=== PATIENT | male | born 1955 | race Two or more races ===

== ENCOUNTER 2018-08-12 10:32 | Emergency (ER) | payer OTHER, SELFPAY ==
[~2018-08-12] VITALS: Ht 167.6 cm; Wt 67.0 kg
[2018-08-12 10:34] VITALS: BP 153/81
== END 2018-08-12 11:50 | disposition home or self-care (01) ==
LOC: ED 11:26
DX: M54.16 Radiculopathy, lumbar region (principal); F17.200 Nicotine dependence, unspecified, uncomplicated
CPT/HCPCS: 99282; 99406

== ENCOUNTER 2019-09-17 21:41 | Inpatient (IN) | payer OTHER ==
[~2019-09-17] VITALS: Ht 177.8 cm; Wt 64.2 kg
[2019-09-17] MEDS ORDERED: OMNIPAQUE 350 MG/ML, 100ML BOTTLE ONE (22:05)
--- NOTE | 2019-09-17 22:14 | NUR ---
TELE NEURO EXAM IN PROCESS NOW.
--- NOTE | 2019-09-17 22:14 | NUR ---
PT. ARRIVED INTO ED AT 2148 [address]ENT [address] CT COMPLETED AT 2153. ISTAT LABS HANDED TO DR. NORTON AT THIS TIME.
[2019-09-17 22:18] LABS: BASOPHILS # (AUTO) 0.03 x10^3/uL (0-0.1); BASOPHILS % (AUTO) 0 % (0-1); EOSINOPHILS # (AUTO) 0.14 x10^3/uL (0-0.4); EOSINOPHILS % (AUTO) 2 % (1-7); LYMPHOCYTES # (AUTO) 1.88 x10^3/uL (1-3.4); LYMPHOCYTES % (AUTO) 25 % (22-44); MD NO; MEAN CORPUSCULAR HEMOGLOBIN 33.7 pg (27.5-34.5); MEAN CORPUSCULAR HGB CONC 32.8 g/dL (33.2-36.2); MEAN CORPUSCULAR VOLUME 102.8 fL (81-97); MEAN PLATELET VOLUME 7.1 fL (7.4-10.4); MONOCYTES # (AUTO) 0.42 x10^3/uL (0.2-0.8); MONOCYTES % (AUTO) 6 % (2-9); NEUTROPHILS # (AUTO) 4.97 x10^3/uL (1.8-6.8); NEUTROPHILS % (AUTO) 67 % (42-75); PLATELET COUNT 344 x10^3/uL (130-400); RED BLOOD COUNT 3.78 x10^6/uL (4.38-5.82); RED CELL DISTRIBUTION WIDTH 14.5 % (9.4-14.8)
[2019-09-17 22:27] LABS: ALBUMIN 2.6 g/dL (3.4-5.0); ANION GAP 7 mmol/L (5-15); CALCIUM 8.1 mg/dL (8.5-10.1); CHLORIDE 110 mmol/L (98-107); CREATININE 1.25 mg/dL (0.7-1.3); INTERNATIONAL NORMALIZED RATIO 1.15 (0.93-1.1)
--- NOTE | 2019-09-17 22:34 | NUR ---
PT. IS MAINTAINING OWN ORAL SECRETIONS AND GAG REFLEX IS INTACT.
[2019-09-17] MEDS ORDERED: ALTEPLASE IV ONE (23:00)
[2019-09-17] MEDS ORDERED: ALTEPLASE 6 MG in SYRINGE 1 EA IVPush ONE (23:00)
--- NOTE | 2019-09-17 23:16 | NUR ---
PT. REMAINS APHASIC. PT. IS ABLE TO FOLLOW SOME COMMANDS SUCH GRASPING WITH HIS LEFT HAND, LIFTING UP TONGUE FOR ORAL TEMP AND CLOSING MOUTH. PT. WITHDRAWLS MINIMMALY FROM PAINFUL STIMULI TO RIGHT ARM AND RIGHT LEG. PT. HAS EYES OPEN AND CONTINUES TO TWIRL AROUND HIS BANDANA AND WATCH IT. PT. WILL NOT LOOK TO RN WHEN ON RIGHT SIDE OF BED, BUT DOES MAKE EYE CONTACT WHEN ON LEFT SIDE WHEN CALLING HIS NAME. ALL SAFETY MEASURES IN PLACE. THIS RN TO REMAIN AT BS FOR CONTINUOUS OBS.
--- NOTE | 2019-09-17 23:45 | NUR ---
BRUNO AT FOR EKATERINA NOW
--- NOTE | 2019-09-17 23:54 | NUR ---
NO CHANGE IN PT. CONDITION AT THIS TIME.
[2019-09-18] MEDS ORDERED: LABETALOL 5MG/ML, 20ML IV PRN
[2019-09-18] MEDS ORDERED: ONDANSETRON 2MG/ML, 2ML IVPush PRN
--- NOTE | 2019-09-18 00:12 | NUR ---
REPORT TO TERENCE POTTER. FLOOR READY FOR PT. TRANSPORT.
[2019-09-18] MEDS: ATORVASTATIN 40 MG TABLET PO SCH (00:14)
[2019-09-18 00:34] LABS: AMPHETAMINE SCREEN, URINE Negative (Negative); BARBITURATE SCREEN, URINE Negative (Negative); BENZODIAZEPINE SCREEN, URINE Negative (Negative); CANNABINOID SCREEN, URINE Negative (Negative); COCAINE SCREEN, URINE Negative (Negative); METHADONE SCREEN, URINE Negative (Negative); OPIATE SCREEN, URINE Negative (Negative)
[2019-09-18] MEDS ORDERED: ALTEPLASE 1 MG/ML ONE (01:51)
[2019-09-18 04:36] LABS: CHOL/HDL RATIO 3.4; LDL/HDL RATIO 1.8 (0.5-3.0)
[2019-09-18 04:46] LABS: HEMOGLOBIN A1C 5.4 % (4.2-6.3)
[2019-09-18 05:05] VITALS: BP 148/99
[2019-09-18] MEDS ORDERED: CALCIUM GLUCONATE 4.6 MEQ in SODIUM CHLORIDE 0.9% 50 ML IV ONE (08:30)
[2019-09-18] MEDS: SODIUM CHLORIDE 0.9% 1,000 ML IV SCH (10:00)
[2019-09-18] MEDS ORDERED: LORazepam 2 MG/ML, 1ML ONE (15:58)
[2019-09-18] MEDS ORDERED: LORazepam 2 MG/ML, 1ML IVPush ONE (16:00)
[2019-09-19 04:00] VITALS: BP 142/85
[2019-09-19] MEDS: SODIUM CHLORIDE 0.9% 1,000 ML IV SCH (04:30)
[2019-09-19 04:32] LABS: BASOPHILS # (AUTO) 0.01 x10^3/uL (0-0.1); BASOPHILS % (AUTO) 0 % (0-1); EOSINOPHILS % (AUTO) 1 % (1-7); LYMPHOCYTES # (AUTO) 1.29 x10^3/uL (1-3.4); LYMPHOCYTES % (AUTO) 13 % (22-44); MD NO; MEAN CORPUSCULAR HEMOGLOBIN 33.8 pg (27.5-34.5); MEAN CORPUSCULAR HGB CONC 33.6 g/dL (33.2-36.2); MEAN CORPUSCULAR VOLUME 100.6 fL (81-97); MONOCYTES # (AUTO) 0.48 x10^3/uL (0.2-0.8); MONOCYTES % (AUTO) 5 % (2-9); NEUTROPHILS # (AUTO) 8.34 x10^3/uL (1.8-6.8); NEUTROPHILS % (AUTO) 82 % (42-75); PLATELET COUNT 427 x10^3/uL (130-400); RED CELL DISTRIBUTION WIDTH 14.2 % (9.4-14.8)
[2019-09-19 04:36] LABS: ANION GAP 6 mmol/L (5-15); CALCIUM 8.1 mg/dL (8.5-10.1); CHLORIDE 109 mmol/L (98-107); CREATININE 0.97 mg/dL (0.7-1.3)
[2019-09-19] MEDS ORDERED: POTASSIUM CHLORIDE 20 MEQ in SODIUM CHLORIDE 0.9% 250 ML IV ONE (07:00)
[2019-09-19] MEDS ORDERED: PROPOFOL 100 ML IV ONE (08:00)
[2019-09-19] MEDS ORDERED: ETOMIDATE 20 MG/10 ML ONE (08:00)
--- NOTE | 2019-09-19 09:16 | NUR ---
TF GOAL: OSMOLITE 1.2 @ 75ML/HR
[2019-09-19] MEDS: FAMOTIDINE 20 MG TABLET PO SCH ×2 (09:34→21:28)
[2019-09-19] MEDS ORDERED: ASPIRIN 81 MG TABLET CHEW PO ONE (11:00)
[2019-09-19] MEDS ORDERED: LISINOPRIL 5 MG TABLET PO SCH (11:30)
[2019-09-19 13:57] VITALS: BP 164/88
[2019-09-19] MEDS ORDERED: hydrALAzine 20 MG/ML, 1ML IV PRN (14:30)
[2019-09-19] MEDS ORDERED: PHARMACY MAY ADJ FOR RENAL FX MC SCH (16:00)
[2019-09-19 16:14] LABS: O2 FLOW RA L/min
[2019-09-19] MEDS ORDERED: ETOMIDATE 20 MG/10 ML IVPush ONE (16:30)
[2019-09-19] MEDS: PROPOFOL 100 ML IV PRN (16:37)
[2019-09-19] MEDS: LIDOCAINE-MPF 1%, 2ML ENDO PRN (16:49)
[2019-09-19] MEDS ORDERED: ALBUTEROL/IPRATROPIUM 2.5MG/0.5MG, 3 ML NPPB PRN (17:00)
[2019-09-19] MEDS ORDERED: ALBUTEROL/IPRATROPIUM 2.5MG/0.5MG, 3 ML NPPB SCH (17:00)
[2019-09-19] MEDS ORDERED: FUROSEMIDE 20 MG/2 ML IV ONE (17:30)
[2019-09-19] MEDS ORDERED: ACETAMINOPHEN 325 MG TABLET ONE (18:16)
[2019-09-19] MEDS ORDERED: POTASSIUM CHLORIDE 10% 20 MEQ/15 ML UDC ONE (18:16)
[2019-09-19] MEDS: ACETAMINOPHEN 325 MG TABLET PO PRN (18:18)
[2019-09-19] MEDS ORDERED: POTASSIUM CHLORIDE 10% 20 MEQ/15 ML UDC PO ONE (18:30)
[2019-09-19] MEDS ORDERED: POTASSIUM CHLORIDE 20 MEQ TAB.ER.PRT PO ONE (18:30)
[2019-09-19] MEDS ORDERED: LISINOPRIL 10 MG TABLET PO SCH (21:00)
[2019-09-19] MEDS: ATORVASTATIN 40 MG TABLET PO SCH (21:27)
[2019-09-19] MEDS: ALBUTEROL/IPRATROPIUM 2.5MG/0.5MG, 3 ML NPPB SCH (22:45)
[2019-09-20] MEDS: ACETAMINOPHEN 325 MG TABLET PO PRN ×2 (00:12→05:25)
[2019-09-20] MEDS: PROPOFOL 100 ML IV PRN ×3 (00:13→16:38)
[2019-09-20] MEDS: ALBUTEROL/IPRATROPIUM 2.5MG/0.5MG, 3 ML NPPB SCH ×6 (03:00→22:10)
[2019-09-20 04:00] VITALS: BP 133/86
[2019-09-20 04:30] VITALS: BP 117/75
[2019-09-20 06:32] LABS: BASOPHILS # (AUTO) 0.02 x10^3/uL (0-0.1); BASOPHILS % (AUTO) 0 % (0-1); EOSINOPHILS # (AUTO) 0.15 x10^3/uL (0-0.4); EOSINOPHILS % (AUTO) 1 % (1-7); LYMPHOCYTES # (AUTO) 1.33 x10^3/uL (1-3.4); LYMPHOCYTES % (AUTO) 11 % (22-44); MD NO; MEAN CORPUSCULAR HEMOGLOBIN 33.9 pg (27.5-34.5); MEAN CORPUSCULAR HGB CONC 33.3 g/dL (33.2-36.2); MEAN CORPUSCULAR VOLUME 101.8 fL (81-97); MEAN PLATELET VOLUME 6.9 fL (7.4-10.4); MONOCYTES # (AUTO) 0.59 x10^3/uL (0.2-0.8); MONOCYTES % (AUTO) 5 % (2-9); NEUTROPHILS # (AUTO) 9.83 x10^3/uL (1.8-6.8); NEUTROPHILS % (AUTO) 83 % (42-75); PLATELET COUNT 384 x10^3/uL (130-400); RED BLOOD COUNT 4.04 x10^6/uL (4.38-5.82); RED CELL DISTRIBUTION WIDTH 14.1 % (9.4-14.8)
[2019-09-20 06:42] LABS: ANION GAP 7 mmol/L (5-15); CALCIUM 8.3 mg/dL (8.5-10.1); CHLORIDE 105 mmol/L (98-107); CREATININE 1.18 mg/dL (0.7-1.3)
[2019-09-20] MEDS ORDERED: SODIUM CHLORIDE 0.9% 1,000ML IVBOLUS ONE (07:00)
[2019-09-20] MEDS ORDERED: POTASSIUM CHLORIDE 10% 20 MEQ/15 ML UDC PO ONE (07:00)
[2019-09-20] MEDS ORDERED: CALCIUM GLUCONATE 4.6 MEQ in SODIUM CHLORIDE 0.9% 50 ML IV ONE (07:00)
[2019-09-20] MEDS: PIPERACILLIN/TAZO/PMX 3.375GM 50 ML IV SCH ×3 (07:34→18:29)
[2019-09-20] MEDS: FAMOTIDINE 20 MG TABLET PO SCH ×2 (09:04→20:26)
[2019-09-20] MEDS ORDERED: SODIUM CHLORIDE 0.9%, 500ML IVBOLUS ONE (13:00)
[2019-09-20] MEDS: ACETAMINOPHEN 650 MG/20.3 ML UDC PO PRN (16:06)
[2019-09-20] MEDS: ATORVASTATIN 40 MG TABLET PO SCH (20:26)
[2019-09-21] MEDS: PIPERACILLIN/TAZO/PMX 3.375GM 50 ML IV SCH ×4 (01:00→18:31)
[2019-09-21] MEDS: ALBUTEROL/IPRATROPIUM 2.5MG/0.5MG, 3 ML NPPB SCH ×6 (02:00→23:00)
[2019-09-21] MEDS: PROPOFOL 100 ML IV PRN ×2 (02:54→17:59)
[2019-09-21 04:00] VITALS: BP 100/55
[2019-09-21 04:41] LABS: ANION GAP 8 mmol/L (5-15); CALCIUM 7.6 mg/dL (8.5-10.1); CHLORIDE 106 mmol/L (98-107); CREATININE 1.16 mg/dL (0.7-1.3)
[2019-09-21 04:59] LABS: BASOPHILS # (AUTO) 0.03 x10^3/uL (0-0.1); BASOPHILS % (AUTO) 0 % (0-1); EOSINOPHILS # (AUTO) 0.13 x10^3/uL (0-0.4); EOSINOPHILS % (AUTO) 1 % (1-7); LYMPHOCYTES # (AUTO) 1.16 x10^3/uL (1-3.4); LYMPHOCYTES % (AUTO) 10 % (22-44); MD NO; MEAN CORPUSCULAR HEMOGLOBIN 33.9 pg (27.5-34.5); MEAN CORPUSCULAR HGB CONC 32.9 g/dL (33.2-36.2); MEAN CORPUSCULAR VOLUME 102.9 fL (81-97); MEAN PLATELET VOLUME 7.5 fL (7.4-10.4); MONOCYTES % (AUTO) 7 % (2-9); NEUTROPHILS % (AUTO) 81 % (42-75); PLATELET COUNT 298 x10^3/uL (130-400); RED BLOOD COUNT 3.46 x10^6/uL (4.38-5.82); RED CELL DISTRIBUTION WIDTH 13.9 % (9.4-14.8)
[2019-09-21] MEDS: FAMOTIDINE 20 MG TABLET PO SCH ×2 (09:51→20:44)
[2019-09-21] MEDS ORDERED: SODIUM CHLORIDE 0.9%, 500ML IVBOLUS ONE (15:00)
[2019-09-21] MEDS: ACETAMINOPHEN 650 MG/20.3 ML UDC PO PRN (18:40)
[2019-09-21] MEDS: ATORVASTATIN 40 MG TABLET PO SCH (20:43)
[2019-09-22] MEDS: PIPERACILLIN/TAZO/PMX 3.375GM 50 ML IV SCH ×4 (01:00→18:20)
[2019-09-22] MEDS: ALBUTEROL/IPRATROPIUM 2.5MG/0.5MG, 3 ML NPPB SCH ×6 (03:00→22:02)
[2019-09-22] MEDS: PROPOFOL 100 ML IV PRN (03:26)
[2019-09-22 04:07] VITALS: BP 108/59
[2019-09-22 04:46] LABS: ANION GAP 7 mmol/L (5-15); CALCIUM 7.7 mg/dL (8.5-10.1); CHLORIDE 106 mmol/L (98-107)
[2019-09-22 04:48] LABS: CREATININE 1.09 mg/dL (0.7-1.3); TRIGLYCERIDES 67 mg/dL (50-200)
[2019-09-22 06:27] LABS: BASOPHILS # (AUTO) 0.04 x10^3/uL (0-0.1); BASOPHILS % (AUTO) 0 % (0-1); EOSINOPHILS # (AUTO) 0.12 x10^3/uL (0-0.4); EOSINOPHILS % (AUTO) 1 % (1-7); LYMPHOCYTES # (AUTO) 1.15 x10^3/uL (1-3.4); LYMPHOCYTES % (AUTO) 12 % (22-44); MD NO; MEAN CORPUSCULAR HEMOGLOBIN 33.9 pg (27.5-34.5); MEAN CORPUSCULAR HGB CONC 32.9 g/dL (33.2-36.2); MEAN CORPUSCULAR VOLUME 103.2 fL (81-97); MEAN PLATELET VOLUME 7.8 fL (7.4-10.4); MONOCYTES # (AUTO) 0.73 x10^3/uL (0.2-0.8); MONOCYTES % (AUTO) 8 % (2-9); NEUTROPHILS # (AUTO) 7.29 x10^3/uL (1.8-6.8); NEUTROPHILS % (AUTO) 78 % (42-75); PLATELET COUNT 300 x10^3/uL (130-400); RED BLOOD COUNT 3.48 x10^6/uL (4.38-5.82); RED CELL DISTRIBUTION WIDTH 14.4 % (9.4-14.8)
[2019-09-22] MEDS: FAMOTIDINE 20 MG TABLET PO SCH ×2 (08:33→20:30)
[2019-09-22] MEDS: ACETAMINOPHEN 650 MG/20.3 ML UDC PO PRN ×2 (14:10→21:39)
[2019-09-22] MEDS: ATORVASTATIN 40 MG TABLET PO SCH (20:30)
[2019-09-22] MEDS ORDERED: DILTIAZEM 5 MG/ML, 5ML ONE (23:58)
[2019-09-23] MEDS ORDERED: DILTIAZEM 5 MG/ML, 5ML IVPush ONE (00:30)
[2019-09-23] MEDS: PIPERACILLIN/TAZO/PMX 3.375GM 50 ML IV SCH ×2 (01:07→06:40)
[2019-09-23] MEDS: ALBUTEROL/IPRATROPIUM 2.5MG/0.5MG, 3 ML NPPB SCH ×3 (02:00→14:25)
[2019-09-23] MEDS ORDERED: DILTIAZEM 125 MG in SODIUM CHLORIDE 0.9% 100 ML IV SCH (02:30)
[2019-09-23 04:01] VITALS: BP 112/68
[2019-09-23 04:19] LABS: BASOPHILS # (AUTO) 0.03 x10^3/uL (0-0.1); BASOPHILS % (AUTO) 0 % (0-1); EOSINOPHILS # (AUTO) 0.15 x10^3/uL (0-0.4); EOSINOPHILS % (AUTO) 2 % (1-7); LYMPHOCYTES % (AUTO) 10 % (22-44); MD NO; MEAN CORPUSCULAR HEMOGLOBIN 33.7 pg (27.5-34.5); MEAN CORPUSCULAR VOLUME 102.1 fL (81-97); MEAN PLATELET VOLUME 7.7 fL (7.4-10.4); MONOCYTES # (AUTO) 0.56 x10^3/uL (0.2-0.8); MONOCYTES % (AUTO) 6 % (2-9); NEUTROPHILS # (AUTO) 7.11 x10^3/uL (1.8-6.8); NEUTROPHILS % (AUTO) 81 % (42-75); PLATELET COUNT 293 x10^3/uL (130-400); RED CELL DISTRIBUTION WIDTH 14.1 % (9.4-14.8)
[2019-09-23] MEDS: METOPROLOL TARTRATE 25 MG TABLET PO SCH ×2 (08:40→15:58)
[2019-09-23] MEDS: FAMOTIDINE 20 MG TABLET PO SCH ×2 (08:40→21:55)
[2019-09-23 09:20] LABS: ANION GAP 7 mmol/L (5-15); CALCIUM 7.8 mg/dL (8.5-10.1); CHLORIDE 104 mmol/L (98-107); CREATININE 1.04 mg/dL (0.7-1.3)
[2019-09-23] MEDS: ACETAMINOPHEN 650 MG/20.3 ML UDC PO PRN ×2 (09:27→17:55)
[2019-09-23] MEDS ORDERED: ASPIRIN 325 MG TABLET PO SCH (15:00)
[2019-09-23] MEDS: LIDOCAINE-MPF 1%, 2ML ENDO PRN ×2 (18:35→23:00)
[2019-09-23] MEDS: DILTIAZEM 125 MG in SODIUM CHLORIDE 0.9% 100 ML IV PRN (20:07)
[2019-09-23] MEDS: ATORVASTATIN 40 MG TABLET PO SCH (21:56)
[2019-09-24] MEDS: ACETAMINOPHEN 650 MG/20.3 ML UDC PO PRN ×3 (03:31→17:05)
[2019-09-24] MEDS: ASPIRIN 325 MG TABLET PO SCH (03:31)
[2019-09-24 03:56] VITALS: BP 106/69
[2019-09-24 04:29] LABS: BASOPHILS # (AUTO) 0.06 x10^3/uL (0-0.1); BASOPHILS % (AUTO) 1 % (0-1); EOSINOPHILS # (AUTO) 0.13 x10^3/uL (0-0.4); EOSINOPHILS % (AUTO) 1 % (1-7); LYMPHOCYTES # (AUTO) 1.06 x10^3/uL (1-3.4); LYMPHOCYTES % (AUTO) 11 % (22-44); MD NO; MEAN CORPUSCULAR HEMOGLOBIN 33.4 pg (27.5-34.5); MEAN CORPUSCULAR HGB CONC 32.8 g/dL (33.2-36.2); MEAN CORPUSCULAR VOLUME 101.6 fL (81-97); MEAN PLATELET VOLUME 7.7 fL (7.4-10.4); MONOCYTES # (AUTO) 0.73 x10^3/uL (0.2-0.8); MONOCYTES % (AUTO) 8 % (2-9); NEUTROPHILS # (AUTO) 7.36 x10^3/uL (1.8-6.8); NEUTROPHILS % (AUTO) 79 % (42-75); PLATELET COUNT 323 x10^3/uL (130-400); RED BLOOD COUNT 3.72 x10^6/uL (4.38-5.82)
[2019-09-24 06:51] LABS: ALBUMIN 2.2 g/dL (3.4-5.0); ANION GAP 6 mmol/L (5-15); CALCIUM 8.1 mg/dL (8.5-10.1); CHLORIDE 102 mmol/L (98-107)
[2019-09-24 06:57] LABS: ALANINE AMINOTRANSFERASE 52 U/L (12-78); ALKALINE PHOSPHATASE 195 U/L (45-117); BILIRUBIN,TOTAL 0.4 mg/dL (0.2-1.0); CREATININE 1.08 mg/dL (0.7-1.3)
[2019-09-24] MEDS: DILTIAZEM 125 MG in SODIUM CHLORIDE 0.9% 100 ML IV PRN (08:03)
[2019-09-24] MEDS: DILTIAZEM 60 MG TABLET PO SCH ×3 (08:41→21:32)
[2019-09-24] MEDS: FAMOTIDINE 20 MG TABLET PO SCH ×2 (08:42→21:32)
[2019-09-24 10:51] LABS: CULTURE INDICATED? YES; MICROSCOPIC INDICATED
[2019-09-24 11:32] LABS: CLOSTRIDIUM DIFFICILE ANTIGEN NEGATIVE; CLOSTRIDIUM DIFFICILE TOXIN NEGATIVE (Negative)
[2019-09-24] MEDS ORDERED: SCOPOLAMINE PATCH, 1.5MG PATCH.TD72 TD SCH (15:30)
[2019-09-24] MEDS: ATORVASTATIN 40 MG TABLET PO SCH (21:32)
[2019-09-25] MEDS: ACETAMINOPHEN 650 MG/20.3 ML UDC PO PRN ×2 (00:36→08:30)
[2019-09-25 04:00] VITALS: BP 119/65
[2019-09-25 05:38] LABS: BASOPHILS # (AUTO) 0.18 x10^3/uL (0-0.1); BASOPHILS % (AUTO) 2 % (0-1); EOSINOPHILS # (AUTO) 0.11 x10^3/uL (0-0.4); EOSINOPHILS % (AUTO) 1 % (1-7); LYMPHOCYTES # (AUTO) 1.24 x10^3/uL (1-3.4); LYMPHOCYTES % (AUTO) 13 % (22-44); MD NO; MEAN CORPUSCULAR HEMOGLOBIN 33.4 pg (27.5-34.5); MEAN CORPUSCULAR HGB CONC 32.9 g/dL (33.2-36.2); MEAN CORPUSCULAR VOLUME 101.6 fL (81-97); MEAN PLATELET VOLUME 8.1 fL (7.4-10.4); MONOCYTES # (AUTO) 0.77 x10^3/uL (0.2-0.8); MONOCYTES % (AUTO) 8 % (2-9); NEUTROPHILS # (AUTO) 7.38 x10^3/uL (1.8-6.8); NEUTROPHILS % (AUTO) 76 % (42-75); PLATELET COUNT 305 x10^3/uL (130-400); RED BLOOD COUNT 3.35 x10^6/uL (4.38-5.82); RED CELL DISTRIBUTION WIDTH 14.3 % (9.4-14.8)
[2019-09-25] MEDS: ASPIRIN 325 MG TABLET PO SCH (05:43)
[2019-09-25 07:32] LABS: ANION GAP 6 mmol/L (5-15); CALCIUM 8.3 mg/dL (8.5-10.1); CHLORIDE 105 mmol/L (98-107); CREATININE 1.09 mg/dL (0.7-1.3)
[2019-09-25] MEDS: FAMOTIDINE 20 MG TABLET PO SCH (08:35)
[2019-09-25] MEDS ORDERED: FUROSEMIDE 40 MG/4 ML IV SCH (09:00)
[2019-09-25] MEDS ORDERED: DILTIAZEM 90 MG TABLET PO SCH (09:00)
[2019-09-25] MEDS ORDERED: LORazepam 2 MG/ML, 1ML IVPush PRN (12:30)
[2019-09-25] MEDS ORDERED: LORazepam 2 MG/ML, 1ML IV ONE (15:00)
[2019-09-25] MEDS ORDERED: LORazepam 2 MG/ML, 1ML IV PRN (15:00)
[2019-09-25] MEDS ORDERED: ATROPINE OPHTH SOLN 1%, 2ML PO PRN (15:00)
[2019-09-25] MEDS ORDERED: morphine SULFATE 10 MG/ML, 1ML IV ONE (15:00)
[2019-09-25] MEDS: MORPHINE 30MG/30ML PCA.SYR IV PRN ×2 (16:09→22:07)
[2019-09-26] MEDS: MORPHINE 30MG/30ML PCA.SYR IV PRN ×3 (04:23→16:40)
[2019-09-26] MEDS: LORazepam 2 MG/ML, 1ML IV PRN ×2 (04:28→11:57)
[2019-09-26] MEDS ORDERED: MORPHINE SULFATE 4 MG/ML, 1ML IVPush PRN ×2 (19:00)
[2019-09-26] MEDS ORDERED: LORazepam 2 MG/ML, 1ML IVPush PRN (19:00)
[2019-09-26] MEDS ORDERED: ATROPINE OPHTH SOLN 1%, 5ML BC PRN (19:00)
[2019-09-26] MEDS ORDERED: SCOPOLAMINE PATCH, 1.5MG PATCH.TD72 TD SCH (19:00)
== END 2019-09-27 04:25 | disposition expired | DRG 61 ==
LOC: MERGE 21:41 → EDBD 21:41 → ED 22:43 → EDIP 23:33 → CCU 09-18 00:36 → 4NW 09-25 17:25
PROVIDERS: ADMIT Internal Medicine; ATTEND Internal Medicine
PROC: 3E03317 Introduction of Other Thrombolytic into Peripheral Vein, Percutaneous Approach (ICD-10-PCS; principal; 2019-09-17)
PROC: 5A1955Z Respiratory Ventilation, Greater than 96 Consecutive Hours (ICD-10-PCS; 2019-09-19)
PROC: 0BH17EZ Insertion of Endotracheal Airway into Trachea, Via Natural or Artificial Opening (ICD-10-PCS; 2019-09-19)
PROC: 0T9B70Z Drainage of Bladder with Drainage Device, Via Natural or Artificial Opening (ICD-10-PCS; 2019-09-24)
DX: I63.512 Cerebral infarction due to unspecified occlusion or stenosis of left middle cerebral artery (principal); G93.41 Metabolic encephalopathy; J96.00 Acute respiratory failure, unspecified whether with hypoxia or hypercapnia; Z99.11 Dependence on respirator [ventilator] status; G81.91 Hemiplegia, unspecified affecting right dominant side; E87.6 Hypokalemia; F17.200 Nicotine dependence, unspecified, uncomplicated; I08.1 Rheumatic disorders of both mitral and tricuspid valves; I11.0 Hypertensive heart disease with heart failure; I27.20 Pulmonary hypertension, unspecified; I48.91 Unspecified atrial fibrillation; R47.01 Aphasia; Z51.5 Encounter for palliative care; R13.10 Dysphagia, unspecified; I50.9 Heart failure, unspecified; Z79.82 Long term (current) use of aspirin; Z99.3 Dependence on wheelchair
CPT/HCPCS: 36415; 36600; 37195; 70450; 70496; 70498; 70551; 71045; 74018; 76700; 80047; 80048; 80053; 80061; 80307; 81001; 82040; 82330; 82607; 82803; 83036; 83605; 83735; 84443; 84478; 85025; 85610; 85730; 87040; 87070; 87081; 87086; 87205; 87324; 93005; 93306; 94002; 94003; 94640; G0378; J0610; J1940; J2270; J2543; J2704; J2997; J3480; J7620; Q9967; 92523-GN; J2060; J7030; J7040; J7050